=== PATIENT | male | born 1950 | race Caucasian/White ===

== ENCOUNTER → 2021-08-07 | Outpatient (CLI) | payer MEDICARE | LOC: COL.RAD 07:30 | DX: Z13.6 Encounter for screening for cardiovascular disorders (principal); F17.211 Nicotine dependence, cigarettes, in remission ==

== ENCOUNTER → 2022-12-26 | Outpatient (CLI) | payer MEDICARE | LOC: COL.RAD 10:26 | DX: G31.9 Degenerative disease of nervous system, unspecified (principal); I67.82 Cerebral ischemia ==

== ENCOUNTER → 2022-12-31 | Outpatient (CLI) | payer MEDICARE | LOC: COL.RAD 07:16 | DX: I65.23 Occlusion and stenosis of bilateral carotid arteries (principal) ==

== ENCOUNTER → 2024-09-06 | Outpatient (CLI) | payer MEDICARE ==
[2024-09-06 09:59] LABS: HEMATOCRIT 47.8 % (42.0-52.0); HEMOGLOBIN 16.8 g/dl (13.5-18.0); MEAN CELL VOLUME 92 fl (80.0-100.0); MEAN CORPUSCULAR HEMOGLOBIN 32 pg (27-31); MEAN CORPUSCULAR HGB CONC 35 g/dl (33.0-37.0); MEAN PLATELET VOLUME 10.5 fl (7.4-10.4); PLATELET COUNT 193 K/mm3 (130-400); RED BLOOD COUNT 5.19 M/mm3 (4.20-5.60); REDCELL DISTRIBUTION WIDTH-CV 12.5 % (11.5-14.5)
[2024-09-06 10:23] LABS: ALBUMIN 3.7 g/dL (3.4-4.8); BILIRUBIN,TOTAL 0.9 mg/dL (0.2-1.2); CALCIUM 9.6 mg/dL (8.4-10.2); CREATININE, serum 1.03 mg/dL (0.72-1.25); POTASSIUM 4.2 mEq/L (3.5-4.5); TOTAL PROTEIN 7.2 g/dl (6.2-8.1)
== END ==
LOC: COL.LAB 08:21
PROVIDERS: Radiology Radiation Oncology
DX: C61 Malignant neoplasm of prostate (principal)